=== PATIENT | female | born 1970 | race Caucasian/White ===

== ENCOUNTER 2017-09-01 19:18 | Emergency (ER) | payer MEDICARE, OTHER ==
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
[2017-09-01 20:17] VITALS: BP 128/77
== END 2017-09-01 20:15 | disposition home or self-care (01) ==
LOC: ER 19:18
DX: R21 Rash and other nonspecific skin eruption (principal); F17.200 Nicotine dependence, unspecified, uncomplicated